=== PATIENT | female | born 1990 | race Caucasian/White ===

== ENCOUNTER 2016-12-04 | Emergency (ER) | payer MEDICAID | END 2016-12-04 14:48 | disposition home or self-care (01) | DX: F41.9 Anxiety disorder, unspecified (principal) ==

== ENCOUNTER 2017-01-31 10:03 | Outpatient (CLI) | payer MEDICAID | END 2017-01-31 10:04 | disposition home or self-care (01) | DX: M25.551 Pain in right hip (principal) ==

== ENCOUNTER 2017-02-01 08:00 | Outpatient (CLI) | payer MEDICAID | END 2017-02-01 23:59 | disposition home or self-care (01) | DX: K52.9 Noninfective gastroenteritis and colitis, unspecified (principal) ==

== ENCOUNTER 2017-04-02 12:39 | Emergency (ER) | payer MEDICAID ==
[2017-04-02 14:13] LABS: BILIRUBIN,URINE NEGATIVE (NEGATIVE); PH,URINE 7.5 PH (5.0-7.5)
[2017-04-02 14:17] LABS: HCG UR QUAL NEGATIVE; UA CHARGE (STRIP ONLY) YES; UR CULTURE IF IND NOT INDICATED
--- NOTE | 2017-04-02 14:25 | ED Physician Documentation ---
PD HPI FEMALE - Stated complaint Stated Complaint: FEMALE - Chief complaint Chief Complaint: Abd Pain - History obtained from History obtained from: Patient - History of Present Illness Timing - onset: How many days ago (2) Timing - duration: Days (2) Timing - details: Gradual onset, Still present, Waxing and waning Associated symptoms: Urinary frequency, Hematuria. No: Abdominal pain, Vaginal discharge, Genital sore/lesion Contributing factors: No: Sexually active Similar symptoms before: Diagnosis (UTIs) Review of Systems Constitutional: denies: Fever, Chills GI: reports: Nausea. denies: Abdominal Pain, Vomiting, Constipation : reports: Frequency, Hematuria. 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 Psych: Anxiety - Past Surgical History Past Surgical History: No - Present Medications Home Medications: Ambulatory Orders Medication Instructions Recorded Confirmed ALPRAZolam [Xanax] 0.25 mg PO Q8HR PRN #7 tablet 12/04/16 Cephalexin [Keflex] 500 mg PO TID #15 capsule 04/02/17 Hydrocodone/Acetaminophen [Lomira 1 each PO Q6H PRN #15 tablet 04/02/17 5-325 Tablet] Naproxen [Naprosyn] 500 mg PO BID #15 tablet 04/02/17 - Allergies Allergies/Adverse Reactions: Allergies Allergy/AdvReac Type Severity Reaction Status Date / Time No Known Drug Allergies Allergy Verified 07/23/16 12:07 - Social History Does the pt smoke?: No Smoking Status: Never smoker Does the pt drink ETOH?: Yes Does the pt have substance abuse?: No PD ED PE NORMAL - Vitals Vital signs reviewed: Yes - General General: Alert and oriented X 3, No acute distress, Well developed/nourished - HEENT HEENT: Atraumatic, Pharynx benign - Neck Neck: Supple, no meningeal sign, No bony TTP - Cardiac Cardiac: RRR - Respiratory Respiratory: No respiratory distress, Clear bilaterally - Derm Derm: Normal color, Warm and dry - Extremities Extremities: No tenderness to palpate, Normal ROM s pain - Neuro Neuro: Alert and oriented X 3, No motor deficit, Normal speech Results - Vitals Vitals: Vital Signs - 24 hr 04/02/17 04/02/17 04/02/17 12:55 15:17 16:31 Temperature 37 C Heart Rate 61 58 L 78 Respiratory 16 16 16 Rate Blood Pressure 112/76 106/68 118/72 O2 Saturation 100 100 100 Oxygen O2 Source Room air - Labs Labs: Laboratory Tests 04/02/17 13:00 Urine Color YELLOW Urine Clarity CLEAR Urine pH 7.5 Ur Specific [place] 1.010 Urine Protein NEGATIVE Urine Glucose (UA) NEGATIVE Urine Ketones NEGATIVE Urine Occult Blood NEGATIVE Urine Nitrite NEGATIVE Urine Bilirubin NEGATIVE Urine Urobilinogen 0.2 (NORMAL) Ur Leukocyte Esterase NEGATIVE Ur Microscopic Review NOT INDICATED Urine Culture Comments NOT INDICATED Urine HCG, Qual NEGATIVE - Rads (name of study) KUB CT Radiology: Prelim report reviewed (no kidney stones nor signs of other obvious cause. ) PD MEDICAL DECISION MAKING - ED course Complexity details: reviewed results, considered differential, d/w patient Departure - Departure Disposition: 01 Home, Self Care Clinical Impression: Flank pain, acute Condition: Stable Record reviewed to determine appropriate education?: Yes Instructions: ED Flank Pain Uncertain Cause Follow-Up: Aicha Fernandes ARNP [Primary Care Provider] - Prescriptions: Cephalexin [Keflex] 500 mg PO TID #15 capsule Naproxen [Naprosyn] 500 mg PO BID #15 tablet Hydrocodone/Acetaminophen [Lomira 5-325 Tablet] 1 each PO Q6H PRN #15 tablet PRN Reason: Pain Comments: No signs of kidney stones or other cause of the flank pain nor blood in urine. Presume then possible UTI and would treat it that way in case. Recheck if not improved over the next few days. naproxen twice daily, add pain med as needed. Bactrim antibiotic as directed. Discharge Date/Time: 04/02/17 16:32
[2017-04-02] MEDS ORDERED: IBUPROFEN 600 MG TABLET PO STA (14:45)
[2017-04-02] MEDS ORDERED: ACETAMINOPHEN 325 MG TABLET PO STA (14:45)
[2017-04-02] MEDS ORDERED: ONDANSETRON ODT 4 MG TABLET TL STA (14:45)
[2017-04-02] MEDS ORDERED: ACETAMINOPHEN 325 MG TABLET PO ONE (14:50)
[2017-04-02] MEDS ORDERED: IBUPROFEN 600 MG TABLET PO ONE (14:51)
[2017-04-02] MEDS ORDERED: ONDANSETRON ODT 4 MG TABLET ONE (14:52)
--- NOTE | 2017-04-02 15:48 | CT Preliminary Report ---
Exam: CT KUB IMPRESSION: 1. Small right-sided disk herniation L5-S1. 2. No radiographic explanation for this young lady's right sided symptoms. (Normal appendix. No urete ral nor renal stones. No obstructive uropathy.) [facility] SITE ID: [id number]
--- NOTE | 2017-04-02 16:11 | CT Report ---
EXAM: CT ABDOMEN AND PELVIS (CT KUB) EXAM DATE: 04/02/2017 03:20 PM. CLINICAL HISTORY: Hematuria and right flank pain. COMPARISONS: None. TECHNIQUE: Routine axial helical CT imaging was performed through the abdomen and pelvis without IV c ontrast. Reconstructions: Coronal and sagittal. In accordance with CT protocol optimization, one or more of the following dose reduction techniques w ere utilized for this exam: automated exposure control, adjustment of mA and/or KV based on patient s ize, or use of iterative reconstructive technique. FINDINGS: Lung Bases: Unremarkable. 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 Right ureteral system small in caliber without calcified stones. No right renal mass lesions. Left Kidney/Ureter: No stones, hydronephrosis, or hydroureter. No perinephric fat stranding. Other Solid Organs: Noncontrast images of the solid organs are grossly unremarkable. Gallbladder/Bile Ducts: Unremarkable. Peritoneal Cavity: No free fluid, free air or raj adenopathy. Bowel is grossly unremarkable. Normal appendix. Pelvic Organs: No bladder stones or wall thickening. Noncontrast images of the visualized pelvic orga ns are unremarkable. Vasculature: Unremarkable. Other: Small right-sided disk herniation L5-S1. Old mild wedging and degenerative disk disease throughout the thoracic spine. IMPRESSION: 1. Small right-sided disk herniation L5-S1. 2. No radiographic explanation for this young lady's right-sided symptoms. (Normal appendix. No urete ral nor renal stones. No obstructive uropathy.) [facility] Referring Provider Line: [phone] SITE ID: [id number]
[2017-04-02 16:31] VITALS: BP 118/72
== END 2017-04-02 16:32 | disposition home or self-care (01) ==
LOC: ED 12:39
DX: R10.30 Lower abdominal pain, unspecified (principal); R35.0 Frequency of micturition; R11.0 Nausea
CPT/HCPCS: 74176; 81003; 81025; 99283; A9270; Q0162; 81001; 87086

== ENCOUNTER 2017-05-28 13:25 | Outpatient (CLI) | payer MEDICAID ==
--- NOTE | 2017-05-29 11:21 | XRAY Report ---
CHEST, PA AND LATERAL: 05/28/2017 CLINICAL HISTORY: Positive PPD. FINDINGS: Bony thorax is normal. Heart and great vessels are normal. Mediastinum is not widened. Pulmonary parenchyma shows the suggestion of some minor granulomatous calcifications in and about eac h hilar region. Findings are suggestive of minimal evidence of old granulomatous disease. IMPRESSION: MINIMAL EVIDENCE OF OLD GRANULOMATOUS DISEASE. JOB #: [id number] EXT JOB #:[id number]
== END 2017-05-28 13:26 | disposition home or self-care (01) ==
LOC: DI.S 13:25
PROVIDERS: ATTEND Nurse Practitioner Family
DX: R76.11 Nonspecific reaction to tuberculin skin test without active tuberculosis (principal)
CPT/HCPCS: 71020

== ENCOUNTER 2017-06-19 10:06 | Emergency (ER) | payer MEDICAID, OTHER ==
--- NOTE | 2017-06-19 12:02 | XRAY Preliminary Report ---
Exam: XR Knee 3 View RT IMPRESSION: Normal right knee radiography. If there is concern for internal derangement or cartilagin ous abnormality, MRI knee may be considered. [facility] SITE ID: [id number]
--- NOTE | 2017-06-19 12:05 | XRAY Report ---
EXAM: RIGHT KNEE RADIOGRAPHY EXAM DATE: 06/19/2017 11:47 AM. CLINICAL HISTORY: Knee pain. COMPARISON: None. TECHNIQUE: 3 views. FINDINGS: Bones: Normal. No fractures or bone lesions. Joints: Normal. No effusion. No subluxations. Soft Tissues: Normal. No soft tissue swelling. IMPRESSION: Normal right knee radiography. If there is concern for internal derangement or cartilagin ous abnormality, MRI knee may be considered. [facility] Referring Provider Line: [phone] SITE ID: [id number]
--- NOTE | 2017-06-19 12:46 | ED Physician Documentation ---
History of Present Illness - Stated complaint Stated Complaint: R KNEE INJ - Chief complaint Chief Complaint: Ext Problem - Additonal information Additional information: Patient is a 19-year-old female without any significant past medical history presents with a complaint of right knee pain past day. The knee pain started after working a busy shift. 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 There is no obvious traumatic event. She went home after work and noticed right-sided knee pain and swelling. The majority of the pain is lateral. The pain is worse with movement and better with rest. It feels a little stiff and she thought it felt warm. She has been icing it without significant improvement. She was sent to the emergency department by her job. Review of systems: For pertinent positive and negatives in the review of systems please see the history of present illness, otherwise all other systems have been reviewed and are negative. Dragon disclaimer: Parts of this medical record were created using voice recognition technology. Because of the inherent limitations of this system, occasional same sounding word substitutions do occur and persist despite proofreading. Please read the document for context. Review of Systems Musculoskeletal: reports: Joint pain, Extremity swelling, Joint swelling PD PAST MEDICAL HISTORY - Past Medical History Cardiovascular: None Respiratory: None Neuro: None GI: None RN RENAL: None Psych: Depression, Anxiety Other Past Medical History: chronic low back pain, chronic shoulder pain - Past Surgical History Past Surgical History: No - Present Medications Home Medications: Ambulatory Orders Medication Instructions Recorded Confirmed FLUoxetine [PROzac] 40 mg PO DAILY 06/19/17 06/19/17 Ibuprofen 600 mg PO TID PRN #14 tablet 06/19/17 Tramadol HCl 50 mg PO Q8HR PRN #14 tablet 06/19/17 - Allergies Allergies/Adverse Reactions: Allergies Allergy/AdvReac Type Severity Reaction Status Date / Time No Known Drug Allergies Allergy Verified 07/23/16 12:07 - Social History Does the pt smoke?: No Smoking Status: Never smoker Does the pt drink ETOH?: Yes Does the pt have substance abuse?: No - POLST Patient has POLST: No PD ED PE NORMAL - Vitals Vital signs reviewed: Yes - General General: Alert and oriented X 3, No acute distress, Well developed/nourished - Neck Neck: No bruit - Cardiac Cardiac: RRR - Respiratory Respiratory: No respiratory distress, Clear bilaterally - Abdomen Abdomen: Normal bowel sounds - Back Back: No CVA TTP - Derm Derm: Normal color - Extremities Extremities: Other (Lateral tenderness on examination there is no warmth present however the patient has been icing it range of motion is normal on flexion and's mildly limited on complete extension. Valgus and varus strain show lateral tenderness on these maneuvers.) Results - Vitals Vitals: Vital Signs - 24 hr 06/19/17 10:10 Temperature 36.5 C Heart Rate 51 L Respiratory 16 Rate Blood Pressure 118/68 O2 Saturation 99 Oxygen O2 Source Room air PD MEDICAL DECISION MAKING - ED course ED course: Patient has lateral tenderness on examination. There is no definite injury history although possibly one of overuse at work. Radiographs are normal. She does not want to use a leg immobilizer which is probably in a be problematic given her leg size. I did recommend crutches, rest ice weightbearing as tolerated follow-up with orthopedics and will write for small amount of pain medications and anti-inflammatories Disposition: To home Clinical impression: 1. Right knee lateral collateral ligamentous strain suspect Departure - Departure Disposition: 01 Home, Self Care Clinical Impression: Knee LCL sprain Qualifiers: Encounter type: initial encounter Laterality: right Qualified Code(s): S83.421A - Sprain of lateral collateral ligament of right knee, initial encounter Condition: Good Instructions: ED Sprain Knee Follow-Up: [facility] [Provider Group] Prescriptions: Tramadol HCl 50 mg PO Q8HR PRN #14 tablet PRN Reason: Pain Ibuprofen 600 mg PO TID PRN #14 tablet PRN Reason: Pain Forms: Activity restrictions
[2017-06-19 13:17] VITALS: BP 116/66
== END 2017-06-19 13:09 | disposition home or self-care (01) ==
LOC: ED 10:06
DX: S83.421A Sprain of lateral collateral ligament of right knee, initial encounter (principal); X50.3XXA Overexertion from repetitive movements, initial encounter; Y93.F9 Activity, other caregiving; Y99.0 Civilian activity done for income or pay
CPT/HCPCS: 1040M; 73562; 99283

== ENCOUNTER 2017-12-02 12:48 | Outpatient (CLI) | payer MEDICAID ==
[2017-12-02 17:28] LABS: BASOPHILS % (AUTO) 0.4 %; EOSINOPHILS # (AUTO) 0.1 10^3/uL (0.0-0.7); EOSINOPHILS % (AUTO) 0.9 %; HGB - HEMOGLOBIN 12.8 g/dL (12.0-16.0); LYMPHOCYTES % (AUTO) 34.6 %; MEAN CORPUSCULAR HEMOGLOBIN 28.4 pg (27.0-31.0); MEAN CORPUSCULAR HGB CONC 32.4 g/dL (32.0-36.0); MEAN CORPUSCULAR VOLUME 87.6 fL (81.0-99.0); MEAN PLATELET VOLUME 9.6 fL (7.9-10.8); MONOCYTES # (AUTO) 0.4 10^3/uL (0.0-1.0); MONOCYTES % (AUTO) 6.4 %; NEUTROPHILS # (AUTO) 3.3 10^3/uL (1.5-6.6); NEUTROPHILS % (AUTO) 57.7 %; PLT - PLATELET COUNT 231 10^3/uL (130-450); RED BLOOD COUNT 4.51 10^6/uL (4.20-5.40); RED CELL DISTRIBUTION WIDTH 14.4 % (12.0-15.0); WHITE BLOOD COUNT 5.7 x10^3/uL (4.8-10.8)
[2017-12-02 18:51] LABS: % IRON SATURATION 22 % (20-50); ALBUMIN 4.2 g/dL (3.2-5.5); ALBUMIN/GLOBULIN RATIO 1.3 (1.0-2.2); ALKALINE PHOSPHATASE 45 IU/L (42-121); ALT ALANINE AMINOTRANSFERASE 15 IU/L (10-60); AST ASPARTATE AMINOTRANSFERASE 13 IU/L (10-42); BILIRUBIN,TOTAL 0.4 mg/dL (0.2-1.0); BUN - BLOOD UREA NITROGEN 14 mg/dL (6-20); CALCIUM 8.9 mg/dL (8.5-10.3); CARBON DIOXIDE - CO2 26 mmol/L (21-32); CHLORIDE 102 mmol/L (101-111); CREATININE 0.7 mg/dL (0.4-1.0); GFR - MDRD 100 (>89); GLUCOSE 82 mg/dL (70-100); IRON 86 ug/dL (28-170); SODIUM 135 mmol/L (135-145); TOTAL IRON BINDING CAPACITY 396 ug/dL (250-450); TOTAL PROTEIN 7.5 g/dL (6.7-8.2); TRANSFERRIN 283 mg/dL (192-382)
== END 2017-12-02 12:49 | disposition home or self-care (01) ==
LOC: LAB.F 12:48
PROVIDERS: ATTEND Nurse Practitioner Family
DX: F41.8 Other specified anxiety disorders (principal); M54.9 Dorsalgia, unspecified
CPT/HCPCS: 36415; 80053; 83540; 84443; 84466; 85025

== ENCOUNTER 2018-04-22 09:36 | Emergency (ER) | payer MEDICAID ==
[2018-04-22 09:47] VITALS: BP 129/97
[2018-04-22 10:14] LABS: BILIRUBIN,URINE NEGATIVE (NEGATIVE); GLUCOSE, URINE (UA) NEGATIVE (NEGATIVE); KETONES,URINE (UA) NEGATIVE (NEGATIVE); LEUKOCYTE ESTERASE, URINE NEGATIVE (NEGATIVE); NITRITE,URINE NEGATIVE (NEGATIVE); OCCULT BLOOD,URINE NEGATIVE (NEGATIVE); PROTEIN,URINE NEGATIVE (NEGATIVE); UROBILINOGEN,URINE 0.2 (NORMAL) E.U./dL (NORMAL)
[2018-04-22 10:20] LABS: CLARITY,URINE HAZY (CLEAR); HCG UR QUAL NEGATIVE
[2018-04-22 10:32] LABS: BACTERIA,URINE Moderate /HPF (None Seen); MUCUS,URINE Moderate Strands; RBC,URINE None Seen /HPF (0-5); SQUAMOUS EPITHELIAL CELL,UR MOD Squamous (<= Few)
[2018-04-22] MEDS ORDERED: LIDOCAINE VISCOUS 2% 15 ML UDC MM STA (11:43)
[2018-04-22] MEDS ORDERED: MAG HYDROX/AL HYDROX/SIMETH 30 ML UDC PO STA (11:43)
[2018-04-22] MEDS ORDERED: SUCRALFATE 1 GM/10 ML UDC PO STA (11:43)
--- NOTE | 2018-04-22 12:54 | ED Physician Documentation ---
PD HPI ABD PAIN - Stated complaint Stated Complaint: ABDOMINAL CRAMPING/VOMITING - Chief complaint Chief Complaint: Abd Pain - History obtained from History obtained from: Patient, Family - History of Present Illness Timing - onset: Enter time (399), Today Timing - duration: Hours Timing - details: Abrupt onset, Still present, Other (improved now) Quality: Sharp, Pain Location: Epigastric Improved by: Other (time) Worsened by: Moving, Position, Palpation Associated symptoms: Nausea Similar symptoms before: Has not had sx before Recently seen: Not recently seen - Additional information Additional information: 27-year-old female as developed acute epigastric abdominal pain about 4:00 in the morning and she is here for evaluation. Review of Systems Constitutional: denies: Fever Eyes: denies: Decreased vision Ears: denies: Ear pain Nose: denies: Congestion Throat: denies: Sore throat Cardiac: denies: Chest pain / pressure, Palpitations Respiratory: denies: Dyspnea, Cough GI: reports: Abdominal Pain, Nausea. 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 Psych: Depression, Anxiety - Past Surgical History Past Surgical History: No - Present Medications Home Medications: Ambulatory Orders Medication Instructions Recorded Confirmed FLUoxetine [PROzac] 40 mg PO DAILY 06/19/17 06/19/17 Ibuprofen 600 mg PO TID PRN #14 tablet 06/19/17 Tramadol HCl 50 mg PO Q8HR PRN #14 tablet 06/19/17 - Allergies Allergies/Adverse Reactions: Allergies Allergy/AdvReac Type Severity Reaction Status Date / Time No Known Drug Allergies Allergy Verified 04/22/18 09:47 - Social History Does the pt smoke?: No Smoking Status: Never smoker Does the pt drink ETOH?: Yes Does the pt have substance abuse?: No - Immunizations Immunizations are current?: Yes - POLST Patient has POLST: No PD ED PE NORMAL - Vitals Vital signs reviewed: Yes (hypertensive ) - General General: Alert and oriented X 3, No acute distress, Well developed/nourished, Other (27 y/o female clutching her mid abdomen) - HEENT HEENT: Atraumatic, PERRL - Respiratory Respiratory: No respiratory distress - Abdomen Abdomen: Soft, Other (mild epigastric tenderness and no RUQ tenderness.) - Back Back: No CVA TTP, No spinal TTP - Derm Derm: Normal color, Warm and dry, No rash - Extremities Extremities: No deformity, No edema - Neuro Neuro: No motor deficit, No sensory deficit Eye Opening: Spontaneous Motor: Obeys Commands Verbal: Oriented GCS Score: 15 - Psych Psych: Normal mood, Normal affect Results - Vitals Vitals: Vital Signs - 24 hr 04/22/18 09:44 Temperature 36.5 C Heart Rate 63 Respiratory 18 Rate Blood Pressure 129/97 H O2 Saturation 100 Oxygen O2 Source Room air - EKG (time done) 0958 Rate: Rate (enter#) (52) Rhythm: NSR Ischemia: Normal ST segments Compare to prior EKG: Old EKG unavailable Computer interpretation: Agree with computer - Labs Labs: Laboratory Tests 04/22/18 10:10 Urine Color YELLOW Urine Clarity HAZY Urine pH 6.0 Ur Specific [place] >=1.030 H Urine Protein NEGATIVE Urine Glucose (UA) NEGATIVE Urine Ketones NEGATIVE Urine Occult Blood NEGATIVE Urine Nitrite NEGATIVE Urine Bilirubin NEGATIVE Urine Urobilinogen 0.2 (NORMAL) Ur Leukocyte Esterase NEGATIVE Urine RBC None Seen Urine WBC 0-3 Ur Squamous Epith Cells MOD Squamous H Urine Bacteria Moderate H Urine Mucus Moderate Strands Ur Microscopic Review INDICATED Urine Culture Comments NOT INDICATED Urine HCG, Qual NEGATIVE PD MEDICAL DECISION MAKING - ED course Complexity details: reviewed results, re-evaluated patient, considered differential, d/w patient, d/w family ED course: 27-year-old female with epigastric pain radiating to her chest has been taking ibuprofen on a regular basis and sometimes taking without food. She has developed acute epigastric pain and this is ameliorated with use of an GI cocktail consisting of viscous lidocaine Mylanta and Carafate. I did describe with to the patient the reason for the GI cocktail and its diagnostic significance and asked her to rate her pain following taking this. She did take this she did explain that she got some relief with this to the nurse and then when I went to find her in the room she was gone. I suspect she understood the issues. - Sepsis Event Vital Signs: Vital Signs - 24 hr 04/22/18 09:44 Temperature 36.5 C Heart Rate 63 Respiratory 18 Rate Blood Pressure 129/97 H O2 Saturation 100 Oxygen O2 Source Room air Departure - Departure Disposition: ED [place] Clinical Impression: Gastritis Qualifiers: Gastritis type: unspecified gastritis Chronicity: acute Gastritis bleeding: without bleeding Qualified Code(s): K29.00 - Acute gastritis without bleeding Condition: Stable Instructions: ED PUD Vs Gastritis Follow-Up: Aicha Fernandes ARNP [Primary Care Provider] - Discharge Date/Time: 04/22/18 12:30
== END 2018-04-22 12:30 | disposition left against medical advice (07) ==
LOC: ED 09:36
DX: K29.00 Acute gastritis without bleeding (principal)
CPT/HCPCS: 81001; 81025; 93005; 99281; 99283; A9270; 81003; 87086

== ENCOUNTER 2018-09-15 00:15 | Emergency (ER) | payer MEDICAID ==
[2018-09-15 00:41] LABS: MUDS CUTOFF CONCENTRATIONS CUTOFF CONC BELOW:
[2018-09-15 00:43] LABS: BILIRUBIN,URINE NEGATIVE (NEGATIVE); GLUCOSE, URINE (UA) NEGATIVE (NEGATIVE); KETONES,URINE (UA) NEGATIVE (NEGATIVE); LEUKOCYTE ESTERASE, URINE NEGATIVE (NEGATIVE); NITRITE,URINE NEGATIVE (NEGATIVE); OCCULT BLOOD,URINE NEGATIVE (NEGATIVE); PROTEIN,URINE NEGATIVE (NEGATIVE); UROBILINOGEN,URINE 0.2 (NORMAL) E.U./dL (NORMAL)
[2018-09-15] MEDS ORDERED: LORazepam 0.5 MG TABLET PO STA (00:44)
[2018-09-15 00:45] LABS: CLARITY,URINE CLEAR (CLEAR); HCG UR QUAL NEGATIVE
[2018-09-15 00:49] LABS: BASOPHILS # (AUTO) 0.1 10^3/uL (0.0-0.1); BASOPHILS % (AUTO) 0.8 %; EOSINOPHILS # (AUTO) 0.1 10^3/uL (0.0-0.7); EOSINOPHILS % (AUTO) 1.4 %; LYMPHOCYTES # (AUTO) 3.2 10^3/uL (1.5-3.5); MEAN CORPUSCULAR HEMOGLOBIN 29.5 pg (27.0-31.0); MEAN CORPUSCULAR HGB CONC 34.6 g/dL (32.0-36.0); MEAN CORPUSCULAR VOLUME 85.2 fL (81.0-99.0); MEAN PLATELET VOLUME 8.8 fL (7.9-10.8); MONOCYTES # (AUTO) 0.5 10^3/uL (0.0-1.0); MONOCYTES % (AUTO) 5.8 %; NEUTROPHILS # (AUTO) 4.1 10^3/uL (1.5-6.6); PLT - PLATELET COUNT 258 10^3/uL (130-450); RED BLOOD COUNT 4.43 10^6/uL (4.20-5.40); RED CELL DISTRIBUTION WIDTH 13.8 % (12.0-15.0); WHITE BLOOD COUNT 7.9 x10^3/uL (4.8-10.8)
--- NOTE | 2018-09-15 00:52 | ED Physician Documentation ---
History of Present Illness - Stated complaint Stated Complaint: SI - Chief complaint Chief Complaint: MHE - Additonal information Additional information: hx from pt 28 female to ED fro anxiety depression and suicidal ideation with plan to kill heself by OD no harm done yet no HI no hallucinations stressor = family was taking wellbutrin stopped several wk go today her counselor prescribed seroquel and xanax but has not filled yet states has tried numerous antidepressants in the past s effect no recent fever cough NVD Review of Systems Constitutional: denies: Fever, Chills Cardiac: denies: Chest pain / pressure Respiratory: denies: Dyspnea, Cough GI: denies: Abdominal Pain : denies: Now EGA (doubts) Psychiatric: reports: Depressed, Suicidal, Anxiety. 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 Psych: Depression, Anxiety - Past Surgical History Past Surgical History: No - Present Medications Home Medications: Ambulatory Orders Medication Instructions Recorded Confirmed FLUoxetine [PROzac] 40 mg PO DAILY 06/19/17 09/15/18 Ibuprofen 600 mg PO TID PRN #14 tablet 06/19/17 09/15/18 clonazePAM [KlonoPIN] 0.5 mg PO BID PRN #10 tablet 09/15/18 traZODone [Desyrel] 50 mg PO DAILY PM 09/15/18 09/15/18 - Allergies Allergies/Adverse Reactions: Allergies Allergy/AdvReac Type Severity Reaction Status Date / Time No Known Drug Allergies Allergy Verified 09/15/18 00:24 - Social History Does the pt smoke?: No Smoking Status: Never smoker Does the pt drink ETOH?: Yes Does the pt have substance abuse?: No - Immunizations Immunizations are current?: Yes - POLST Patient has POLST: No PD ED PE NORMAL - Vitals Vital signs reviewed: Yes - General General: Alert and oriented X 3 - HEENT HEENT: Atraumatic - Neck Neck: Supple, no meningeal sign - Cardiac Cardiac: RRR - Respiratory Respiratory: No respiratory distress - Abdomen Abdomen: Soft, Non tender - Derm Derm: Normal color - Neuro Neuro: Alert and oriented X 3 - Psych Psych: Other (anxious tearful depressed suicidal, denies HI and hallucinations) Results - Vitals Vitals: Vital Signs - 24 hr 09/15/18 09/15/18 00:18 06:27 Temperature 36.8 C Heart Rate 62 65 Respiratory 18 16 Rate Blood Pressure 144/72 H 146/82 H O2 Saturation 100 98 Oxygen O2 Source Room air - Labs Labs: Laboratory Tests 09/15/18 09/15/18 09/15/18 00:30 00:30 00:40 WBC 7.9 RBC 4.43 Hgb 13.0 Hct 37.7 MCV 85.2 MCH 29.5 MCHC 34.6 RDW 13.8 Plt Count 258 MPV 8.8 Neut # (Auto) 4.1 Lymph # (Auto) 3.2 Cecil # (Auto) 0.5 Eos # (Auto) 0.1 Baso # (Auto) 0.1 Absolute Nucleated RBC 0.00 Nucleated RBC % 0.0 Sodium Potassium Chloride Carbon Dioxide Anion Gap BUN Creatinine Estimated GFR (MDRD) Glucose Calcium Total Bilirubin AST ALT Alkaline Phosphatase Total Protein Albumin Globulin Albumin/Globulin Ratio Lipase TSH Urine Color YELLOW Urine Clarity CLEAR Urine pH 7.0 Ur Specific [place] 1.020 Urine Protein NEGATIVE Urine Glucose (UA) NEGATIVE Urine Ketones NEGATIVE Urine Occult Blood NEGATIVE Urine Nitrite NEGATIVE Urine Bilirubin NEGATIVE Urine Urobilinogen 0.2 (NORMAL) Ur Leukocyte Esterase NEGATIVE Ur Microscopic Review NOT INDICATED Urine Culture Comments NOT INDICATED Urine HCG, Qual NEGATIVE Salicylates Urine Opiates Screen NEGATIVE Ur Oxycodone Screen NEGATIVE Urine Methadone Screen NEGATIVE Ur Propoxyphene Screen NEGATIVE Acetaminophen Ur Barbiturates Screen NEGATIVE Ur Tricyclics Screen NEGATIVE Ur Phencyclidine Scrn NEGATIVE Ur Amphetamine Screen NEGATIVE U Methamphetamines Scrn NEGATIVE U Benzodiazepines Scrn NEGATIVE Urine Cocaine Screen NEGATIVE U Cannabinoids Screen POSITIVE H Ethyl Alcohol 09/15/18 09/15/18 00:40 00:40 WBC RBC Hgb Hct MCV MCH MCHC RDW Plt Count MPV Neut # (Auto) Lymph # (Auto) Cecil # (Auto) Eos # (Auto) Baso # (Auto) Absolute Nucleated RBC Nucleated RBC % Sodium 136 Potassium 3.8 Chloride 103 Carbon Dioxide 25 Anion Gap 8.0 BUN 15 Creatinine 0.8 Estimated GFR (MDRD) 85 L Glucose 95 Calcium 8.8 Total Bilirubin 0.5 AST 30 ALT 42 Alkaline Phosphatase 56 Total Protein 7.9 Albumin 4.2 Globulin 3.7 Albumin/Globulin Ratio 1.1 Lipase 34 TSH 6.48 H Urine Color Urine Clarity Urine pH Ur Specific [place] Urine Protein Urine Glucose (UA) Urine Ketones Urine Occult Blood Urine Nitrite Urine Bilirubin Urine Urobilinogen Ur Leukocyte Esterase Ur Microscopic Review Urine Culture Comments Urine HCG, Qual Salicylates < 6.0 Urine Opiates Screen Ur Oxycodone Screen Urine Methadone Screen Ur Propoxyphene Screen Acetaminophen < 10 L Ur Barbiturates Screen Ur Tricyclics Screen Ur Phencyclidine Scrn Ur Amphetamine Screen U Methamphetamines Scrn U Benzodiazepines Scrn Urine Cocaine Screen U Cannabinoids Screen Ethyl Alcohol < 5.0 PD MEDICAL DECISION MAKING - ED course ED course: pt medically cleared TSH slightly high indicated probable hypothyroidism - but this would be inconsistent with her anxiety and agitation - so merits outpt fup but doubt it is the cause of todays acute crisis pt has gone to inpt mental health care - but isnt sure she needs that or not [facility] medically clear ordered telepsych at 120 telepsych service called to advise they have no provider at this time so will be approx 5 AM before they are back in service and not sure where pt is in list will continue to wait and also placed SW consult for when they are available tomorrow pt updated re wait pt seen by telepsych Dr Viveros - he advises cannot enter his note in [place] but will fax a hard copy - but he called to give me his rec - he feels pt is low risk and safe for dc, rec she take the seroquel 25 BID as recommended, rec that she NOT take the xanax she has been prescribed but rather change for klonopin 0.5 q12h PRN anxiety, and he rec that she see a psychiatrist as well as her counselor pt tells me she is feeling much better and no longer feels suicidal will dc with rec as above Departure - Departure Disposition: Home, Self Care Clinical Impression: Suicidal ideation Depression Qualifiers: Depression Type: unspecified Qualified Code(s): F32.9 - Major depressive disorder, single episode, unspecified Condition: Good Instructions: ED Depression Prescriptions: clonazePAM [KlonoPIN] 0.5 mg PO BID PRN #10 tablet PRN Reason: Anxiety Comments: The tele - psychiatrist feels it is safe for you to go home. He agrees with the prescription for seroquel 25 mg twice daily. He does not recommend the xanax - he suggests you try klonopin 0.5 mg every 12h as needed for anxiety and so I have prescribed that for you (may cause drowsiness so no driving for 12 hr) And he suggests you see a psychiatrist as well as your counselor. If worse in any way please call the crisis line and/or return to the ER Forms: Activity restrictions
[2018-09-15 00:53] LABS: AMPHETAMINE SCREEN,URINE NEGATIVE (NEGATIVE); BENZODIAZEPINES SCREEN, URINE NEGATIVE (NEGATIVE); COCAINE SCREEN URINE NEGATIVE (NEGATIVE); METHADONE SCREEN, URINE NEGATIVE (NEGATIVE); METHAMPHETAMINES SCREEN, URINE NEGATIVE (NEGATIVE); OPIATE SCREEN, URINE NEGATIVE (NEGATIVE); OXYCODONE SCREEN, URINE NEGATIVE (NEGATIVE); PROPOXYPHENE SCREEN, URINE NEGATIVE (NEGATIVE); TRICYCLIC ANTIDEPRESSANT,URINE NEGATIVE (NEGATIVE)
[2018-09-15 00:59] LABS: ACETAMINOPHEN < 10 ug/mL (10-30); ALBUMIN 4.2 g/dL (3.2-5.5); ALBUMIN/GLOBULIN RATIO 1.1 (1.0-2.2); ALKALINE PHOSPHATASE 56 IU/L (42-121); ALT ALANINE AMINOTRANSFERASE 42 IU/L (10-60); AST ASPARTATE AMINOTRANSFERASE 30 IU/L (10-42); BILIRUBIN,TOTAL 0.5 mg/dL (0.2-1.0); BUN - BLOOD UREA NITROGEN 15 mg/dL (6-20); CALCIUM 8.8 mg/dL (8.5-10.3); CARBON DIOXIDE - CO2 25 mmol/L (21-32); CHLORIDE 103 mmol/L (101-111); CREATININE 0.8 mg/dL (0.4-1.0); GFR - MDRD 85 (>89); GLUCOSE 95 mg/dL (70-100); LIPASE 34 U/L (22-51); SALICYLATE < 6.0 mg/dL; SODIUM 136 mmol/L (135-145); TOTAL PROTEIN 7.9 g/dL (6.7-8.2)
[2018-09-15 06:28] VITALS: BP 146/82
== END 2018-09-15 06:43 | disposition home or self-care (01) ==
LOC: ED 00:15
DX: R45.851 Suicidal ideations (principal); F32.9 Major depressive disorder, single episode, unspecified; F41.0 Panic disorder [episodic paroxysmal anxiety]; T43.596A Underdosing of other antipsychotics and neuroleptics, initial encounter; R79.89 Other specified abnormal findings of blood chemistry; Z63.8 Other specified problems related to primary support group; Z91.5 Personal history of self-harm
CPT/HCPCS: 36415; 80053; 80306; 80307; 80320; 80329; 81003; 81025; 83690; 84443; 85025; 99283; 99284; A9270; G0425; Q3014; 81001; 87086

== ENCOUNTER 2018-09-25 10:14 | Outpatient (CLI) | payer MEDICAID | END 2018-09-25 10:15 | disposition home or self-care (01) | LOC: LAB.F 10:14 | PROVIDERS: ATTEND Nurse Practitioner Family | DX: F41.8 Other specified anxiety disorders (principal) | CPT/HCPCS: 36415; 84443 ==